=== PATIENT | female | born 1995 | race Caucasian/White ===

== ENCOUNTER 2016-05-31 00:09 | Emergency (ER) ==
--- NOTE | 2016-05-31 00:52 | PROVIDER DOCUMENTATION ---
HPI-EENT General - General Chief Complaint: Toothache Stated Complaint: FLU SX Time Seen by Provider: 05/31/16 00:28 Source: patient Allergies/Adverse Reactions: Patient Allergies Allergy/AdvReac Type Severity Reaction Status Date / Time aspirin Allergy NAUSEA/VOMI Verified 05/31/16 00:20 TING Home Medications: Home Medication List Medication Instructions Recorded Confirmed Last Taken Type Penicillin V Potassium 500 mg PO BID #20 tablet 05/31/16 Unknown Rx - History of Present Illness-EENT General Nature of Presenting Problem: 21 y/o WF c/o cough, fever, body aches x 1 day, L lower jaw toothache x 3 days. Pt states she had a filling that fell out of her L lower molar x 3 months ago. Reports radiation to the L ear. Denies any other sxs. Review of Systems - Adult - REVIEW OF SYSTEMS - ADULT Constitutional: reports: see HPI, fever. denies: chills Eyes: reports: no symptoms reported. denies: blurred vision, double vision Ears, Nose, Mouth & Throat: reports: see HPI, ear pain, mouth/dental pain. denies: nose pain, throat pain Cardiovascular: reports: no symptoms reported. denies: chest pain, palpitations Respiratory: reports: see HPI, cough. denies: dyspnea on exertion, shortness of breath Gastrointestinal: reports: no symptoms reported. denies: abdominal pain, nausea , vomiting Genitourinary: reports: no symptoms reported. denies: dysuria, frequency Musculoskeletal: reports: see HPI, muscle aches. denies: joint pain, joint swelling Integumentary: reports: no symptoms reported. denies: nail changes, rash Neurological: reports: no symptoms reported. denies: numbness, paresthesia Psychiatric: reports: no symptoms reported Endocrine: reports: no symptoms reported. denies: cold intolerance, heat intolerance Hematologic/Lymphatic: reports: no symptoms reported. denies: easy bruising, prolonged bleeding Allergic/Immunologic: reports: no symptoms reported All Other Systems: Reviewed and Negative Past History - Adult - PAST MEDICAL HISTORY-ADULT Review of Records: reports: Nursing Assessment Review, Medications Reviewed - SOCIAL HISTORY Smoking: cigarettes, less than 1 pack/day Provider spent 3-5 mins advising pt. on dangers of tobacco.: Discussed manners to quit use, and f/u contacts for add'l counseling. Physical Exam- EENT - Physical Exam EENT Initial Vital Signs Reviewed: Yes General Appearance: alert, mild distress Eye Exam: bilateral eye: normal inspection Ear Exam: bilateral ear: auricle normal, canal normal, TM normal Nasal Exam: normal inspection. negative: sinus tenderness Throat Exam: normal mouth inspection, dental tenderness Mouth,Throat: 1 - dental decay, gingival redness Neck: supple, normal inspection. negative: lymphadenopathy Respiratory: lungs clear, normal breath sounds. negative: crackles, rales, rhonchi, stridor, wheezing Cardiovascular: regular rate, rhythm. negative: bradycardia, tachycardia Lymphatic: no adenopathy Back Exam: normal inspection Extremity: normal gait Integumentary: normal color, normal turgor, warm/dry Neurologic: negative: aphasia Psych/Mental Status: normal mood/affect, normal thought content, normal thought process, oriented x 3 Progress - PLAN OF CARE/RESULTS Progress/Plan/Lab Results: Laboratory Tests 05/31/16 00:23 Influenza A (Rapid) NEGATIVE Influenza B (Rapid) NEGATIVE Orders Category Date Time Status INFLUENZA SCREEN PL Stat Lab 05/31/16 00:23 Completed Acetaminophen Liquid [Tylenol Liquid] Med 05/31/16 00:56 Discontinued 650 mg PO NOW ONE Hydrocodone/APAP 7.5 mg/325 mg [[place]-7.5] Med 05/31/16 00:56 Discontinued 1 each PO NOW ONE Lidocaine 2% Viscous [Xylocaine 2% Viscous] Med 05/31/16 00:56 Discontinued 15 ml MT NOW ONE Penicillin V Potassium [Pen Vk] Med 05/31/16 00:56 Discontinued 500 mg PO NOW ONE Vital Signs Temp Pulse Resp BP Pulse Ox 05/31/16 00:21 98.9 F 102 H 20 136/92 100 aspirin Allergy (Verified 05/31/16 00:20) NAUSEA/VOMITING Penicillin V Potassium 500 mg PO BID #20 tablet 05/31/16 Laboratory 05/31/16 00:23 Influenza A (Rapid) NEGATIVE Influenza B (Rapid) NEGATIVE Discussed medication use and f/u with pt. Departure - Departure Time of Disposition Order: 00:53 DIAGNOSIS: Tooth infection, Dental decay DIAGNOSIS: (Ruled Out): Influenza Disposition: HOME 01 Certified Medical Emergency: Emergent Condition: Stable Additional Instructions: Follow up with dentist for further management. Take medications as directed. [facility] Contact Information: * [address] [place] [address], [place] - [address] * ED Follow Up Instructions: You have been treated by a care provider in the Emergency Department. These instructions are being provided to you so you can have an understanding of how to care for yourself upon discharge. Upon discharge from the Emergency Department, you are responsible for making arrangements for follow-up care by a physician of your choice. Take all prescribed medications as directed. Return to the Emergency Department immediately for any new or worsening symptoms. You may call the Physician Referral phone number at [phone] to obtain a list of Physicians who are taking new patients. Prescriptions: Penicillin V Potassium 500 mg PO BID #20 tablet Referrals: None,PCP [Primary Care Provider] - Attestation - Physician/ YARIEL Attestation Patient care was provided by Advanced Practice Provider:: Yes Advanced Practice Provider:: Olive Henson Advanced Practice Provider documentation review:: The Mid-level provider documentation, treatment plan and medical decision making was reviewed by the physician who agrees with all treatment and medical decision making by the MLP.
[2016-05-31] MEDS ORDERED: XYLOCAINE 2% VISCOUS MT ONE (00:56)
[2016-05-31] MEDS ORDERED: PEN VK PO ONE (00:56)
[2016-05-31] MEDS ORDERED: NORCO-7.5 PO ONE (00:56)
[2016-05-31] MEDS ORDERED: TYLENOL LIQUID PO ONE (00:56)
[2016-05-31] MEDS ORDERED: TYLENOL LIQUID ONE (01:32)
[2016-05-31 01:34] VITALS: BP 144/98
== END 2016-05-31 01:40 | disposition home or self-care (01) ==
LOC: P.ED 00:09
DX: K04.7 Periapical abscess without sinus (principal); K02.9 Dental caries, unspecified; R05 Cough; R50.9 Fever, unspecified; K08.89 Other specified disorders of teeth and supporting structures; H92.02 Otalgia, left ear; M79.1 Myalgia; F17.210 Nicotine dependence, cigarettes, uncomplicated; Z71.6 Tobacco abuse counseling
CPT/HCPCS: 87804; 99283